=== PATIENT | male | born 1970 | race Caucasian/White ===

== ENCOUNTER 2016-08-18 14:29 | Observation (INO) | payer BC, OTHER ==
[~2016-08-18] VITALS: Ht 190.5 cm; Wt 140.9 kg
[2016-08-18] VITALS (9 sets, daily range): BP systolic 139–230; BP diastolic 94–117; PULSE 59–65; RESP 16–20; TEMP 98.2–99.2; O2SAT 60–98
[2016-08-18] MEDS ORDERED: ASPIRIN 325 MG TAB PO ONE (14:45)
[2016-08-18] MEDS ORDERED: cloNIDine HCL 0.2 MG TAB PO ONE (14:45)
--- NOTE | 2016-08-18 14:49 | PD ---
HPI Chief Complaint: Chest Pain Time Seen by Provider: 14:45 Travel History International Travel<30 days: No Contact w/Intl Traveler<30days: No Traveled to known affect area: No History of Present Illness HPI This 46-year-old male says he been having episodes where he feels lightheaded. He also had an episode this morning where he had tightness in his chest which lasted for about an hour. He does not get exertional chest pain. He does have a history of hypertension and has been on Bystolic 20 mg last 2 months. He does not smoke. There is some family history of heart disease. He is not having tightness now. He has no history of syncope. He usually takes Bystolic at 5:30 in the morning but today took it around 11:00. He does take aspirin every day but he has not taken it yet today. PFSH Past Medical History Hypertension: Yes Social History Tobacco Use: No Allergies-Medications (Allergen,Severity, Reaction): Coded Allergies: No Known Allergies (Unverified , 08/18/16) Reported Meds & Prescriptions Reported Meds & Active Scripts Active Reported Aspirin 325 Mg Tab 325 Mg PO HS Bystolic (Nebivolol) 10 Mg Tab 10 Mg PO DAILY Review of Systems General / Constitutional: No: Fever, Chills Eyes: No: Diploplia, Blurred Vision HENT: No: Headaches, Vertigo Cardiovascular: Positive: Chest Pain or Discomfort, No: Palpitations, Irregular Rhythm Respiratory: No: Cough, Shortness of Breath Gastrointestinal: No: Nausea, Vomiting Genitourinary: No: Frequency, Dysuria Musculoskeletal: No: Myalgias, Arthralgias Skin: No Itching Neurologic: No: Weakness, Dizziness Psychiatric: No: Anxiety Hematologic/Lymphatic: No: Easy Bruising Physical Exam Narrative GENERAL: Well-developed male SKIN: Focused skin assessment warm/dry. HEAD: Atraumatic. Normocephalic. EYES: Pupils equal and round. No scleral icterus. No injection or drainage. ENT: No nasal bleeding or discharge. Mucous membranes pink and moist. NECK: Trachea midline. No JVD. CARDIOVASCULAR: Regular rate and rhythm. No murmur appreciated. No chest wall tenderness RESPIRATORY: No accessory muscle use. Clear to auscultation. Breath sounds equal bilaterally. GASTROINTESTINAL: Abdomen soft, non-tender, nondistended. Hepatic and splenic margins not palpable. MUSCULOSKELETAL: No obvious deformities. No clubbing. No cyanosis. No edema. NEUROLOGICAL: Awake and alert. No obvious cranial nerve deficits. Motor grossly within normal limits. Normal speech. PSYCHIATRIC: Appropriate mood and affect; insight and judgment normal. Data Data Last Documented VS Vital Signs Date Time Temp Pulse Resp B/P Pulse Ox O2 Delivery O2 Flow Rate FiO2 08/18/16 14:45 67 18 08/18/16 14:30 98.2 230/117 98 Orders Electrocardiogram (08/18/16 14:45) Complete Blood Count With Diff (08/18/16 14:45) Basic Metabolic Panel (Bmp) (08/18/16 14:45) Troponin I (08/18/16 14:45) Prothrombin Time / Inr (Pt) (08/18/16 14:45) Act Partial Throm Time (Ptt) (08/18/16 14:45) Urinalysis - C+S If Indicated (08/18/16 14:45) Magnesium (Mg) (08/18/16 14:45) Chest, Single Ap (08/18/16 14:45) Aspirin (Aspirin) (08/18/16 14:45) Clonidine (Catapres) (08/18/16 14:45) Labs Laboratory Tests Test 08/18/16 14:30 White Blood Count 8.1 TH/MM3 Red Blood Count 5.37 MIL/MM3 Hemoglobin 18.1 GM/DL Hematocrit 52.8 % Mean Corpuscular Volume 98.3 FL Mean Corpuscular Hemoglobin 33.6 PG Mean Corpuscular Hemoglobin 34.2 % Concent Red Cell Distribution Width 12.5 % Platelet Count 214 TH/MM3 Mean Platelet Volume 9.0 FL Neutrophils (%) (Auto) 63.8 % Lymphocytes (%) (Auto) 21.4 % Monocytes (%) (Auto) 10.2 % Eosinophils (%) (Auto) 2.7 % Basophils (%) (Auto) 1.9 % Neutrophils # (Auto) 5.2 TH/MM3 Lymphocytes # (Auto) 1.7 TH/MM3 Monocytes # (Auto) 0.8 TH/MM3 Eosinophils # (Auto) 0.2 TH/MM3 Basophils # (Auto) 0.2 TH/MM3 CBC Comment DIFF FINAL Differential Comment Prothrombin Time 12.8 SEC Prothromb Time International 1.2 RATIO Ratio Activated Partial 28.0 SEC Thromboplast Time Sodium Level 140 MEQ/L Potassium Level 4.3 MEQ/L Chloride Level 103 MEQ/L Carbon Dioxide Level 27.2 MEQ/L Anion Gap 10 MEQ/L Blood Urea Nitrogen 12 MG/DL Creatinine 1.20 MG/DL Estimat Glomerular Filtration 65 ML/MIN Rate Random Glucose 133 MG/DL Calcium Level 9.3 MG/DL Magnesium Level 2.5 MG/DL Troponin I LESS THAN 0.02 NG/ML MDM Medical Decision Making Medical Screen Exam Complete: Yes Emergency Medical Condition: Yes Medical Record Reviewed: Yes Differential Diagnosis Differential includes artery disease, atypical chest pain, hypertension Narrative Course EKG shows normal sinus rhythm. His troponin is normal. Trachea midline with markedly elevated blood pressure 230/117 he has been given 0.2 of clonidine and is now 170/100. Patient has been having chest pain off and on and will be admitted to chest pain center for further evaluation Diagnosis Primary Impression: Chest pain Qualified Code: R07.9 - Chest pain, unspecified type Admitting Information Admitting Physician Requests: Observation Ashvin Escobedo MD August 18, 2016 14:49
[2016-08-18] MEDS ORDERED: BYST10TA2 PO (14:59)
[2016-08-18] MEDS ORDERED: ASPI325T PO (14:59)
--- NOTE | 2016-08-18 15:03 | EKG ---
Date Performed: 08/18/2016 Time Performed: 14:29:18 PTAGE: 46 years EKG: Sinus rhythm Normal ECG NO PREVIOUS TRACING DOCTOR: Prosper Good Interpretating Date/Time 08/18/2016 15:01:06
[2016-08-18 15:05] LABS: AUTOMATED NEUTROPHIL # 5.2 TH/MM3 (1.8-7.7); BASOPHIL # 0.2 TH/MM3 (0-0.2); BASOPHIL % 1.9 % (0.0-2.0); EOSINOPHIL # 0.2 TH/MM3 (0-0.4); EOSINOPHIL % 2.7 % (0.0-4.0); HEMATOCRIT 52.8 % (39.0-51.0); HEMO FLAGS DIFF FINAL; LYMPH % 21.4 % (9.0-44.0); LYMPHOCYTE # 1.7 TH/MM3 (1.0-4.8); MEAN CELL VOLUME 98.3 FL (80.0-100.0); MEAN CORPUSCULAR HEMOGLOBIN 33.6 PG (27.0-34.0); MEAN CORPUSCULAR HGB CONC 34.2 % (32.0-36.0); MONO % 10.2 % (0.0-8.0); NEUT % 63.8 % (16.0-70.0); PLATELET COUNT 214 TH/MM3 (150-450); RED BLOOD COUNT 5.37 MIL/MM3 (4.50-5.90); RED CELL DISTRIBUTION WIDTH 12.5 % (11.6-17.2); WHITE BLOOD COUNT 8.1 TH/MM3 (4.0-11.0)
[2016-08-18 15:14] LABS: CHLORIDE 103 MEQ/L (98-107); POTASSIUM 4.3 MEQ/L (3.5-5.1); SODIUM (NA) 140 MEQ/L (136-145)
[2016-08-18 15:17] LABS: ANION GAP 10 MEQ/L (5-15); BICARBONATE 27.2 MEQ/L (21.0-32.0); BLOOD UREA NITROGEN 12 MG/DL (7-18); MAGNESIUM 2.5 MG/DL (1.5-2.5)
[2016-08-18 15:20] LABS: GLOMERULAR FILTRATION RATE 65 ML/MIN (>89)
[2016-08-18 15:21] LABS: INTERNATIONAL NORMALIZED RATIO 1.2 RATIO; PROTHROMBIN TIME - PATIENT 12.8 SEC (9.8-11.6)
[2016-08-18] MEDS ORDERED: NALOXONE HCL 0.4 MG/ML AMP IV PRN (16:00)
[2016-08-18] MEDS ORDERED: SODIUM CHLORIDE 0.9% FLUSH 10 ML FLUSH IV FLUSH PRN (16:00)
[2016-08-18] MEDS ORDERED: NEBIVOLOL 10 MG TAB PO SCH (16:00)
[2016-08-18] MEDS ORDERED: ENOXAPARIN SODIUM 40 MG/0.4 ML SYRINGE SQ SCH (16:00)
[2016-08-18] MEDS ORDERED: MORPHINE SULFATE 4 MG/ML INJ IV PRN (16:00)
[2016-08-18] MEDS ORDERED: ACETAMINOPHEN 325 MG TAB PO PRN ×2 (16:00)
[2016-08-18] MEDS ORDERED: ONDANSETRON HCL 4 MG/2 ML VIAL IVP PRN (16:00)
[2016-08-18] MEDS ORDERED: ENALAPRILAT 2.5 MG/2 ML VIAL IV PUSH PRN (16:15)
--- NOTE | 2016-08-18 16:16 | RADHPO ---
EXAM DATE/TIME: 08/18/2016 15:11 [facility] COMPARISON: No previous studies available for comparison. INDICATIONS : Chest pain MEDICAL HISTORY : None. SURGICAL HISTORY : None. ENCOUNTER: Initial ACUITY: 4 - 6 days PAIN SCORE: 8/10 LOCATION: Bilateral chest FINDINGS: The heart is top normal in size. The pulmonary vascular pattern is normal. The lungs are clear. CONCLUSION: No acute cardiopulmonary disease. Chava Scott MD on August 18, 2016 at 16:10 Board Certified Radiologist. This report was verified electronically.
--- NOTE | 2016-08-18 16:21 | HHI.HP ---
[facility] Autumn Melendrez MD Admission Diagnosis CHEST PAIN Diagnoses: Chief Complaint: Chest pain Travel History International Travel<30 Days: No Contact w/Intl Traveler <30 Da: No Traveled to Known Affected Are: No History of Present Illness The patient is a 46-year-old male with a past medical history of hypertension who is presenting to the hospital with chest pain. The patient says that on he was doing training class when all of a sudden he experienced sharp pain in the center of his chest. It seemed to gradually radiate down his back. The pain went away. Over the past few days he has experienced chest tightness when waking up. The chest pressure would last for about an hour at a time. He said the sensation was similar to congestion. He has been experiencing shortness of breath with the episodes of chest pressure. The patient has been having difficulty sleeping with the chest pressure. He says moving around and tossing and turning in bed has helped. He said he has had cold sweats. He denied any fevers. He has been feeling nauseous at times. He also endorses dizziness/lightheadedness. Today he felt tingling down his left arm and that is what prompted him to come to the emergency department. He currently says his chest pain and tingling sensation in his left arm have resolved. He says he checked his blood pressure today and his systolic blood pressure was over 200 and he was concerned about that. He says he doesn't often check his blood pressure at home. Review of Systems Except as stated in HPI: all other systems reviewed are Neg Past Family Social History Past Medical History HTN Past Surgical History Right knee arthroscopy Tonsillectomy Allergies: Coded Allergies: No Known Allergies (Unverified , 08/18/16) Active Ordered Medications Current Medications Medications (Trade) Dose Ordered Sig/Rohit Route Start Time Stop Time Status Last Admin (Aspirin) 325 mg HS PO 08/19/16 21:00 (NS Flush) 2 ml UNSCH PRN IV FLUSH 08/18/16 16:00 (NS Flush) 2 ml BID IV FLUSH 08/18/16 21:00 (Tylenol) 650 mg Q4H PRN PO 08/18/16 16:00 (Zofran Inj) 4 mg Q6H PRN IVP 08/18/16 16:00 (Lovenox Inj) 40 mg Q24H SQ 08/18/16 16:00 (Tylenol) 650 mg Q6H PRN PO 08/18/16 16:00 (Roxicodone) 10 mg Q4H PRN PO 08/18/16 16:00 (Morphine Inj) 4 mg Q3H PRN IV 08/18/16 16:00 (Roxicodone) 5 mg Q4H PRN PO 08/18/16 16:00 (Narcan Inj) 0.4 mg UNSCH PRN IV 08/18/16 16:00 (Nikole-Colace) 1 tab BID PO 08/18/16 21:00 Family History CAD Diabetes Social History The patient does not smoke. He has occasional alcohol intake. Physical Exam Vital Signs Vital Signs Date Time Temp Pulse Resp B/P Pulse Ox O2 Delivery O2 Flow Rate FiO2 08/18/16 14:45 67 18 08/18/16 14:30 98.2 65 16 230/117 98 Physical Exam GENERAL: This is a well-nourished, well-developed patient, in no apparent distress. SKIN: No rashes, ecchymoses or lesions. Cool and dry. HEAD: Atraumatic. Normocephalic. No temporal or scalp tenderness. EYES: Pupils equal round and reactive. Extraocular motions intact. No scleral icterus. No injection or drainage. ENT: Nose without bleeding, purulent drainage or septal hematoma. Throat without erythema, tonsillar hypertrophy or exudate. Uvula midline. Airway patent. NECK: Trachea midline. No JVD or lymphadenopathy. Supple, nontender, no meningeal signs. CARDIOVASCULAR: Regular rate and rhythm without murmurs, gallops, or rubs. RESPIRATORY: Clear to auscultation. Breath sounds equal bilaterally. No wheezes , rales, or rhonchi. GASTROINTESTINAL: Abdomen soft, non-tender, nondistended. No hepato-splenomegaly , or palpable masses. No guarding. MUSCULOSKELETAL: Extremities without clubbing, cyanosis, or edema. No joint tenderness, effusion, or edema noted. No reproducible chest pain upon palpation. NEUROLOGICAL: Awake and alert. Cranial nerves II through XII intact. Motor and sensory grossly within normal limits. Five out of 5 muscle strength in all muscle groups. Normal speech. PSYCH: Mood and affect appropriate. Laboratory Laboratory Tests Test 08/18/16 14:30 White Blood Count 8.1 Red Blood Count 5.37 Hemoglobin 18.1 Hematocrit 52.8 Mean Corpuscular Volume 98.3 Mean Corpuscular Hemoglobin 33.6 Mean Corpuscular Hemoglobin 34.2 Concent Red Cell Distribution Width 12.5 Platelet Count 214 Mean Platelet Volume 9.0 Neutrophils (%) (Auto) 63.8 Lymphocytes (%) (Auto) 21.4 Monocytes (%) (Auto) 10.2 Eosinophils (%) (Auto) 2.7 Basophils (%) (Auto) 1.9 Neutrophils # (Auto) 5.2 Lymphocytes # (Auto) 1.7 Monocytes # (Auto) 0.8 Eosinophils # (Auto) 0.2 Basophils # (Auto) 0.2 CBC Comment DIFF FINAL Differential Comment Prothrombin Time 12.8 Prothromb Time International 1.2 Ratio Activated Partial 28.0 Thromboplast Time Sodium Level 140 Potassium Level 4.3 Chloride Level 103 Carbon Dioxide Level 27.2 Anion Gap 10 Blood Urea Nitrogen 12 Creatinine 1.20 Estimat Glomerular Filtration 65 Rate Random Glucose 133 Calcium Level 9.3 Magnesium Level 2.5 Troponin I LESS THAN 0.02 Result Diagram: 08/18/16 1430 08/18/16 1430 Assessment and Plan Assessment and Plan Atypical chest pain The patient has had chest pain since . On the day of admission he also experienced a tingling sensation in his left arm. His blood pressure has been significantly elevated at times which could be contributing to the chest pain, as well as his lightheadedness. EKG with normal sinus rhythm and no evidence of ischemia. Chest x-ray unremarkable. Initial troponin negative. - Trend troponins and EKGs per chest pain center protocol. - Stress test in a.m. - Blood pressure control. - Check a lipid profile and hemoglobin A1c. Accelerated HTN The patient had a blood pressure of 230/117 in the emergency department. He is on nebivolol as an outpatient. Improved with clonidine. - Continue nebivolol. - IV Vasotec as needed. - Consider adding an ANTOLIN inhibitor. Hyperglycemia Glucose elevated upon presentation. - Check a hemoglobin A1c. Polycythemia Possibly secondary to dehydration. - Follow CBC after 1 L normal saline. PPx: Lovenox Discussed Condition With Dr. Lozano, pt, pt's nurse Bandar Ruiz DO August 18, 2016 16:21
[2016-08-18] MEDS ORDERED: SODIUM CHLOR 0.9% 1000 ML INJ 1,000 ML IV SCH (16:30)
[2016-08-18] MEDS ORDERED: INFLUENZA VIRUS VACCINE (QUADRIVALENT) 0.5 ML SYR IM ONE (18:30)
[2016-08-18] MEDS ORDERED: PNEUMOCOCCAL POLYVALENT INJ 25 MCG/0.5 ML SYR IM ONE (18:30)
[2016-08-18] MEDS: SODIUM CHLORIDE 0.9% FLUSH 10 ML FLUSH IV FLUSH SCH ×2 (19:44→20:51)
[2016-08-18 19:55] LABS: HDL CHOLESTEROL 52.8 MG/DL (40.0-60.0); LDL CHOLESTEROL 117 MG/DL (0-99)
[2016-08-18] MEDS: DOCUSATE SODIUM 50 MG/SENNA 8.6 MG TAB PO SCH (20:50)
--- NOTE | 2016-08-18 21:22 | EKG ---
Date Performed: 08/18/2016 Time Performed: 20:32:18 PTAGE: 46 years EKG: BASELINE ARTIFACT PRESENT. Sinus bradycardia. Normal ECG except for rate NO SIGNIFICANT PARAS NGE FROM PRIOR ELECTROCARDIOGRAM. PREVIOUS TRACING : 08/18/2016 17.34 DOCTOR: Prosper Good Interpretating Date/Time 08/18/2016 21:21:09
--- NOTE | 2016-08-18 21:25 | EKG ---
Date Performed: 08/18/2016 Time Performed: 17:34:04 PTAGE: 46 years EKG: BASELINE ARTIFACT PRESENT. Sinus rhythm . Normal ECG NO SIGNIFICANT CHANGE FROM PRIOR ELECTROCARDIOGRAM. PREVIOUS TRACING : 08/18/2016 14.29 DOCTOR: Prosper Good Interpretating Date/Time 08/18/2016 21:24:12
[2016-08-18 21:44] LABS: BLOOD, URINE NEG (NEG); GLUCOSE,URINE NEG (NEG); KETONE, URINE NEG (NEG); NITRITE,URINE NEG (NEG)
[2016-08-18 21:59] LABS: URINE COLOR AMBER (YELLW/STRAW)
[2016-08-18 22:00] LABS: COMMENT (UR) CULT NOT INDICATED; CULTURE IF INDICATED CULT NOT INDICATED; MUCUS URINE MOD /lpf (OCC); SQUAMOUS EPITHELIAL CELL URINE 0-5 /hpf (0-5); WBC, URINE 0-2 /hpf (0-5)
[2016-08-19 00:31] VITALS: BP 150/90; PULSE 59; RESP 18; TEMP 97.1; O2SAT 95
[2016-08-19 04:43] VITALS: BP 156/101; PULSE 56; TEMP 98.9; O2SAT 96
[2016-08-19 06:52] LABS: AUTOMATED NEUTROPHIL # 5.2 TH/MM3 (1.8-7.7); BASOPHIL # 0.1 TH/MM3 (0-0.2); BASOPHIL % 0.9 % (0.0-2.0); EOSINOPHIL # 0.1 TH/MM3 (0-0.4); EOSINOPHIL % 1.9 % (0.0-4.0); HEMATOCRIT 50.3 % (39.0-51.0); HEMO FLAGS DIFF FINAL; LYMPH % 16.5 % (9.0-44.0); LYMPHOCYTE # 1.2 TH/MM3 (1.0-4.8); MEAN CELL VOLUME 98.6 FL (80.0-100.0); MEAN CORPUSCULAR HEMOGLOBIN 33.8 PG (27.0-34.0); MEAN CORPUSCULAR HGB CONC 34.3 % (32.0-36.0); MONO % 11.6 % (0.0-8.0); NEUT % 69.1 % (16.0-70.0); PLATELET COUNT 208 TH/MM3 (150-450); RED CELL DISTRIBUTION WIDTH 12.5 % (11.6-17.2); WHITE BLOOD COUNT 7.5 TH/MM3 (4.0-11.0)
[2016-08-19 07:01] LABS: POTASSIUM 3.8 MEQ/L (3.5-5.1)
[2016-08-19 07:05] LABS: BICARBONATE 27.7 MEQ/L (21.0-32.0)
--- NOTE | 2016-08-19 07:32 | HHI.PR ---
Subjective Remarks Written by Samir Kelly, acting as scribe for Dr. Ruiz on 08/19/16 at 07: 16. Patient is resting comfortably in bed. Still having some intermittent heaviness in his chest throughout the evening. Blood pressure improved with medications. He said he was aware of his elevated blood sugar level. He was agreeable with lifestyle modifications. Objective Vitals Vital Signs Date Time Temp Pulse Resp B/P Pulse Ox O2 Delivery O2 Flow Rate FiO2 08/19/16 04:43 98.9 56 156/101 96 08/19/16 00:31 97.1 59 18 150/90 95 08/18/16 21:26 95 21 08/18/16 20:00 61 08/18/16 19:49 99.2 60 18 164/99 60 08/18/16 17:32 96 21 08/18/16 17:20 98.2 62 20 154/112 95 156/94 08/18/16 17:10 61 16 139/95 96 Room Air 08/18/16 16:10 59 16 164/99 95 Room Air 08/18/16 15:40 60 16 177/104 98 Room Air 08/18/16 14:45 67 18 08/18/16 14:30 98.2 65 16 230/117 98 I/O 08/18/16 08/18/16 08/18/16 08/19/16 08/19/16 08/19/16 07:00 15:00 23:00 07:00 15:00 23:00 Output Total 500 ml Balance -500 ml Output Urine Total 500 ml # Voids 2 Result Diagram: 08/19/16 0625 08/19/16 0625 Imaging Last Impressions Chest X-Ray 08/18/16 1445 Signed Impressions: Service Date/Time: Thursday, August 18, 2016 15:11 - CONCLUSION: No acute cardiopulmonary disease. Chava Scott MD Objective Remarks GENERAL: Well-developed, well-nourished, in no acute distress. alert and orientated HEENT: Head is normocephalic without any lesions or masses noted. Facial features are symmetric. Eyes: Extraocular muscles are intact. Conjunctivae were clear. NECK: Supple without any masses. Trachea midline no deviation. No JVD, CARDIAC: Regular rhythm, regular rate. S1/S2 are heard. No murmurs gallops or rubs. LUNGS: Clear to auscultation bilaterally. No wheeze, rhonchi or rales. No use of accessory muscles on inspiration or expiration. ABDOMEN: Soft, nontender. Nondistended. Bowel sounds heard in all 4 quadrants. No organomegaly or masses. Negative rebound, negative guarding EXTREMITIES: No edema, pulses are equal bilaterally. No cyanosis or clubbing NEUROLOGY: Mood and affect appear appropriate. Cranial nerves II through XII grossly intact. Moving all extremities, speech is clear Medications and IVs Current Medications Medications (Trade) Dose Ordered Sig/Rohit Route Start Time Stop Time Status Last Admin (Aspirin) 325 mg HS PO 08/19/16 21:00 (NS Flush) 2 ml UNSCH PRN IV FLUSH 08/18/16 16:00 (NS Flush) 2 ml BID IV FLUSH 08/18/16 21:00 (Tylenol) 650 mg Q4H PRN PO 08/18/16 16:00 08/18/16 21:07 (Zofran Inj) 4 mg Q6H PRN IVP 08/18/16 16:00 (Lovenox Inj) 40 mg Q24H SQ 08/18/16 16:00 08/18/16 16:14 (Tylenol) 650 mg Q6H PRN PO 08/18/16 16:00 (Roxicodone) 10 mg Q4H PRN PO 08/18/16 16:00 (Morphine Inj) 4 mg Q3H PRN IV 08/18/16 16:00 (Roxicodone) 5 mg Q4H PRN PO 08/18/16 16:00 (Narcan Inj) 0.4 mg UNSCH PRN IV 08/18/16 16:00 (Nikole-Colace) 1 tab BID PO 08/18/16 21:00 08/19/16 11:09 (Bystolic) 10 mg DAILY PO 08/19/16 09:00 08/18/16 16:13 (Vasotec Inj) 2.5 mg Q6H PRN IV PUSH 08/18/16 16:15 08/18/16 21:07 (Prinivil) 10 mg DAILY PO 08/19/16 09:00 08/19/16 11:09 Urinary Catheter: No Vascular Central Line Catheter: No A/P Assessment and Plan Atypical chest pain The patient has had chest pain since . On the day of admission he also experienced a tingling sensation in his left arm. His blood pressure has been significantly elevated at times which could be contributing to the chest pain, as well as his lightheadedness. EKG with normal sinus rhythm and no evidence of ischemia. Chest x-ray unremarkable. Troponins were flat. - Patient ruled out for any acute coronary event with serial cardiac enzymes that remain negative, EKGs without any changes. - Exercise stress test negative. - Blood pressure control. Added lisinopril. - Patient continued on aspirin, beta ishan. - Pain control with oxycodone, morphine Accelerated HTN, improved The patient had a blood pressure of 230/117 in the emergency department. He is on nebivolol as an outpatient. Improved with clonidine. - Continue nebivolol. - IV Vasotec as needed. - Add lisinopril 10 mg daily. Hyperglycemia, likely diabetes Glucose elevated upon presentation. Patient has been notified in the past about elevated glucose and lifestyle modifications. - Patient with fasting glucose 139 - Awaiting hemoglobin A1c. - Counseled the patient extensively on lifestyle modifications to include diet, exercise, medical follow-up Hyperlipidemia Patient indicates that he has been notified of elevation in the past, he knows that he needs to change his lifestyle. - LDL 117 - Patient counseled on lifestyle modifications. Patient does not want to use any statins due to side effect profile - Patient was counseled on outpatient follow-up with primary medical doctor Polycythemia, mildly improved Possibly secondary to dehydration. - Follow CBC after 1 L normal saline. PPx: Lovenox Discharge Planning Discharge home in stable condition Activity: Ad zackery. Diet: Healthy heart/diabetic diet Medications per medication reconciliation Follow-up primary medical doctor in one week This note was transcribed by elias Kelly. I, Dr. Bandar Ruiz personally performed the history, physical exam, and medical decision making; and confirmed the accuracy of the information in the transcribed note. Authenticated by Dr. Bandar Ruiz on 08/19/16 at 12:03. Samir Kelly August 19, 2016 07:32 Bandar Ruiz DO August 19, 2016 12:03
[2016-08-19 08:00] VITALS: BP 153/96; PULSE 61; RESP 20; TEMP 96.7; O2SAT 93
[2016-08-19] MEDS ORDERED: LISINOPRIL 10 MG TAB PO SCH (09:00)
[2016-08-19] MEDS ORDERED: NEBIVOLOL 10 MG TAB PO SCH (09:00)
[2016-08-19] MEDS ORDERED: LISI10TA3 PO (10:54)
--- NOTE | 2016-08-19 10:54 | HHI.DCPOC ---
Discharge Care Plan Diagnosis: (1) Chest pain Goals to Promote Your Health * To prevent worsening of your condition and complications * To maintain your health at the optimal level Directions to Meet Your Goals Take your medications as prescribed Follow your dietary instruction Follow activity as directed Keep your appointments as scheduled Take your immunizations and boosters as scheduled If your symptoms worsen call your PCP, if no PCP go to Urgent Care Center or Emergency Room Smoking is Dangerous to Your Health. Avoid second hand smoke Call the 24-hour hour crisis hotline for domestic abuse at Samir Kelly August 19, 2016 10:54
[2016-08-19] MEDS: DOCUSATE SODIUM 50 MG/SENNA 8.6 MG TAB PO SCH (11:09)
[2016-08-19] MEDS ORDERED: NEBIVOLOL 10 MG TAB PO ONE (11:15)
[2016-08-19 11:35] VITALS: BP 144/95; PULSE 71; RESP 18; TEMP 97.1; O2SAT 92
[2016-08-19] MEDS ORDERED: ASPIRIN 325 MG TAB PO SCH (21:00)
--- NOTE | 2016-08-20 08:06 | TR ---
Date Performed: 08/19/2016 Time Performed: 09:58:31 DOCTOR: Sherrie Bustamante DRUG LIST: CLINICAL HISTORY: CHEST PAIN X 2 DAYS REASON FOR TEST: REASON FOR ENDING: Completed Protocol OBSERVATION: Arrhythmia: None Chest Pain: None CONCLUSION: Patient tolerated TIGRE prortocol with Total Exercise Time=8:59 Maximum GE=487 Max HR Achieved=87.0% Maximum VK=014/110, Patient was asymptomatic throoughout testing. Testing stopped s econdary to goals acheived. Patient reached goal HR, During peak exercise, patient had quick upslopin g ST segments. HR and BP appropriate response to exercise. Recovery period, patient HR and BP returne d to baseline. COMMENTS:
[2016-08-20 08:14] LABS: HEMOGLOBIN Ao 85.2 %; HEMOGLOBIN F 0.9 %; HEMOGLOBIN LA1C 1.5 %; HEMOGLOBIN P3 3.5 %
--- NOTE | 2016-08-21 07:33 | TR ---
Date Performed: 08/19/2016 Time Performed: 09:58:31 DOCTOR: Sherrie Bustamante DRUG LIST: CLINICAL HISTORY: CHEST PAIN X 2 DAYS REASON FOR TEST: REASON FOR ENDING: Completed Protocol OBSERVATION: Arrhythmia: None Chest Pain: None CONCLUSION: Patient tolerated TIGRE prortocol with Total Exercise Time=8:59 Maximum PH=320 Max HR Achieved=87.0% Maximum GT=482/110, Patient was asymptomatic throoughout testing. Testing stopped s econdary to goals acheived. Patient reached goal HR, During peak exercise, patient had quick upslopin g ST segments. HR and BP appropriate response to exercise. Recovery period, patient HR and BP returne d to baseline. COMMENTS:
== END 2016-08-19 12:52 | disposition home or self-care (01) ==
LOC: PHED 14:29 → UNDOADMOB 15:48 → PHEDA 15:48 → PH3B 17:12 → UNDODISOB 08-19 12:52
PROVIDERS: ADMIT Hospitalist; ATTEND Hospitalist
DX: R07.89 Other chest pain (principal); R42 Dizziness and giddiness; R73.9 Hyperglycemia, unspecified; D75.1 Secondary polycythemia; E78.5 Hyperlipidemia, unspecified; I10 Essential (primary) hypertension; Z82.49 Family history of ischemic heart disease and other diseases of the circulatory system; Z79.82 Long term (current) use of aspirin
CPT/HCPCS: 71010; 80048; 80061; 81001; 83036; 83735; 84484; 85025; 85610; 85730; 93005; 93017; 96372; 99285; G0378; J1650